=== PATIENT | female | born 1990 | race American Indian/Alaskan Native ===

== ENCOUNTER 2018-12-10 18:05 | Emergency (ER) | payer OTHER ==
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
--- NOTE | 2018-12-10 20:10 | XRay Report ---
PROCEDURE: XR SPINE CERVICAL 2-3V TECHNIQUE: AP, lateral , swimmer's, and odontoid views of the cervical spine HISTORY: posterior neck pain COMPARISONS: None . FINDINGS: The vertebral body heights and disc spaces are well maintained. The alignment is normal. No preverteb ral soft tissue swelling is seen. The odontoid is intact. IMPRESSION: Normal cervical spine. This document is electronically signed by Marleni Kebede MD., Dec 10 2018 08:08:46 PM ET
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
[2018-12-10] MEDS ORDERED: IBUPROFEN PO ONE ×2 (21:33→21:38)
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
[2018-12-10 23:03] VITALS: BP 118/68
== END 2018-12-10 22:55 | disposition home or self-care (01) ==
LOC: ED 18:05
DX: M54.2 Cervicalgia (principal); M54.6 Pain in thoracic spine; V87.7XXA Person injured in collision between other specified motor vehicles (traffic), initial encounter; Y93.89 Activity, other specified; Y92.488 Other paved roadways as the place of occurrence of the external cause; Y99.8 Other external cause status
CPT/HCPCS: 72040; 72070; 99283